=== PATIENT | female | born 1985 | race Two or more races ===

== ENCOUNTER 2016-10-20 14:39 | Inpatient (IN) | payer MEDICAID, OTHER ==
[~2016-10-20] VITALS: Ht 162.6 cm; Wt 129.7 kg
[2016-10-20 14:51] LABS: BASOPHILS # (AUTO) 0.1 /CMM (0.0-0.2); BASOPHILS % (AUTO) 1.7 % (0.0-2.0); DIFF TOTAL % 100 %; EOSINOPHILS # (AUTO) 0.1 /CMM (0.0-0.7); EOSINOPHILS % (AUTO) 1.8 % (0.0-6.0); HEMATOCRIT 47 % (33-45); HEMOGLOBIN 15.8 g/dL (11.5-14.8); LYMPHOCYTES # (AUTO) 1.9 /CMM (0.8-4.8); MEAN CORPUSCULAR HEMOGLOBIN 28 PG (26.0-33.0); MEAN CORPUSCULAR HGB CONC 34 g/dl (31.0-36.0); MEAN CORPUSCULAR VOLUME 84 fL (82-100); MONOCYTES # (AUTO) 0.2 /CMM (0.1-1.30); MONOCYTES % (AUTO) 2.2 % (2.0-12.0); NEUTROPHILS # (AUTO) 5.7 /CMM (1.8-8.9); NEUTROPHILS % (AUTO) 70.3 % (43.0-81.0); PLATELET COUNT (AUTO) 296 /CMM (150-450)
[2016-10-20] MEDS ORDERED: IV NS 0.9% 500 ML BAG IV ONE ×2 (15:00→16:30)
[2016-10-20] MEDS ORDERED: ONDANSETRON HCL/PF 4 MG/2 ML VIAL IVP ONE (15:00)
[2016-10-20] MEDS ORDERED: MORPHINE SULFATE INJ 2 MG/ML DISP.SYRIN IV ONE (15:00)
[2016-10-20 15:05] LABS: CALCIUM, SERUM 9.2 mg/dL (8.5-10.1); CREATININE 0.8 mg/dL (0.6-1.3)
[2016-10-20 15:12] LABS: INR 1.11 (0.87-1.13); PROTHROMBIN TIME 11.7 SECS (9.5-12.7)
[2016-10-20] MEDS ORDERED: IV NS 0.9% 500 ML IV ONE ×2 (15:27→16:11)
[2016-10-20] MEDS ORDERED: ONDANSETRON HCL/PF 4 MG/2 ML VIAL ONE (15:27)
[2016-10-20] MEDS ORDERED: MORPHINE SULFATE INJ 4 MG/ML DISP.SYRIN ONE (15:27)
[2016-10-20] MEDS ORDERED: IV NS 0.9% 250 ML IV ONE (15:59)
[2016-10-20] MEDS ORDERED: CT SWABBABLE VALVE TRANS SET 1 EA INFUS.SET MC ONE (15:59)
[2016-10-20] MEDS ORDERED: IOHEXOL-300 100 ML VIAL IV ONE (15:59)
[2016-10-20] MEDS ORDERED: IV NS 0.9% 1,000 ML ONE (16:11)
[2016-10-20] MEDS ORDERED: IV SET PRIMARY 1 EA INFUS.SET MC ONE (16:11)
[2016-10-20] MEDS ORDERED: IV NS 0.9% 1,000 ML BAG IV ONE (16:30)
[2016-10-20] MEDS ORDERED: CLON0.1T PO (17:51)
[2016-10-20] MEDS ORDERED: LISI-603 PO (17:51)
[2016-10-20] MEDS ORDERED: AMLO10TA2 PO (17:51)
[2016-10-20 20:00] VITALS: BP 159/96
[2016-10-20] MEDS ORDERED: Z GUARD REMEDY 2 OZ OINT TP PRN (20:30)
[2016-10-20] MEDS ORDERED: ONDANSETRON HCL/PF 4 MG/2 ML VIAL IVP PRN (20:30)
[2016-10-20] MEDS ORDERED: HYDROCODONE/APAP 10/325MG 1 EA TABLET PO PRN (20:30)
[2016-10-20] MEDS ORDERED: ACETAMINOPHEN 325 MG TABLET PO PRN (20:30)
[2016-10-20] MEDS ORDERED: MORPHINE SULFATE INJ 2 MG/ML DISP.SYRIN IV PRN (20:30)
[2016-10-20] MEDS ORDERED: ZOLPIDEM TARTRATE 5 MG TABLET PO PRN (20:30)
[2016-10-20] MEDS ORDERED: IV SET PRIMARY PUMP SET 1 EA INFUS.SET MC ONE (20:58)
[2016-10-20] MEDS: IV NS 0.9% 1,000 ML IV PRN (21:04)
[2016-10-20] MEDS: BLOOD SUGAR DIAGNOSTIC 1 EACH STRIP IN SCH (21:38)
[2016-10-20] MEDS ORDERED: DEXTROSE 50%-WATER 50 ML DISP.SYRIN IV PRN (22:00)
[2016-10-20 23:10] LABS: CANNABINOID, URINE NEGATIVE (NEGATIVE); PHENCYCLIDINE SCREEN,URINE NEGATIVE (NEGATIVE)
[2016-10-21] VITALS: BP 148/92
[2016-10-21] MEDS: INSULIN REGULAR, HUMAN 100 UNIT/ML 3 ML VIAL SQ PRN ×5 (00:14→22:00)
[2016-10-21] MEDS ORDERED: LIRA0.6P2 SUBCUT (00:19)
[2016-10-21 04:00] VITALS: BP 155/91
[2016-10-21 07:25] LABS: BASOPHILS % (AUTO) 0.2 % (0.0-2.0); DIFF TOTAL % 100 %; EOSINOPHILS # (AUTO) 0.2 /CMM (0.0-0.7); EOSINOPHILS % (AUTO) 3.2 % (0.0-6.0); HEMATOCRIT 38 % (33-45); HEMOGLOBIN 12.7 g/dL (11.5-14.8); LYMPHOCYTES # (AUTO) 2.1 /CMM (0.8-4.8); MEAN CORPUSCULAR HEMOGLOBIN 28 PG (26.0-33.0); MEAN CORPUSCULAR HGB CONC 34 g/dl (31.0-36.0); MEAN CORPUSCULAR VOLUME 82 fL (82-100); MONOCYTES # (AUTO) 0.5 /CMM (0.1-1.30); MONOCYTES % (AUTO) 6.5 % (2.0-12.0); NEUTROPHILS # (AUTO) 4.6 /CMM (1.8-8.9); NEUTROPHILS % (AUTO) 62.1 % (43.0-81.0); PLATELET COUNT (AUTO) 257 /CMM (150-450); RED BLOOD CELL COUNT(AUTO) 4.57 MIL/uL (4.0-5.2); WHITE BLOOD COUNT (AUTO) 7.4 K/uL (4.3-11.0)
[2016-10-21] MEDS: BLOOD SUGAR DIAGNOSTIC 1 EACH STRIP IN SCH ×4 (07:30→22:06)
[2016-10-21 08:00] VITALS: BP 160/90
[2016-10-21] MEDS: CLONIDINE HCL 0.1 MG TABLET PO SCH ×2 (08:15→16:34)
[2016-10-21] MEDS: AMLODIPINE BESYLATE 10 MG TABLET PO SCH (08:15)
[2016-10-21] MEDS: PANTOPRAZOLE 40 MG TABLET.DR PO SCH (08:15)
[2016-10-21] MEDS: LISINOPRIL (20MG) 20 MG TABLET PO SCH (08:15)
[2016-10-21] MEDS: ISOSORBIDE DINITRATE (20MG) 20 MG TABLET PO SCH ×2 (08:20→16:33)
[2016-10-21] MEDS: hydrALAZINE HCL 50 MG TABLET PO SCH ×3 (08:20→16:34)
[2016-10-21 11:14] LABS: BILIRUBIN,TOTAL 0.6 mg/dL (0.2-1.0); CALCIUM, SERUM 8.2 mg/dL (8.5-10.1); CREATININE 0.6 mg/dL (0.6-1.3); PHOSPHORUS 2.9 mg/dL (2.5-4.9); POTASSIUM 3.8 mmol/L (3.5-5.1); TOTAL PROTEIN, SERUM 6.9 g/dL (6.4-8.2)
[2016-10-21] MEDS: IV NS 0.9% 1,000 ML IV PRN ×2 (11:26→22:05)
[2016-10-21 12:13] LABS: THYROID STIMULATING HORMONE 0.636 uIU/mL (0.358-3.74)
[2016-10-21 16:00] VITALS: BP 156/75
[2016-10-21] MEDS ORDERED: SECONDARY IV SET 1 EA INFUS.SET MC ONE (18:24)
[2016-10-21] MEDS: Magnesium 1GM/D5W 100ML PREMIX 100 ML IV SCH ×2 (18:33→21:50)
[2016-10-21 20:00] VITALS: BP 118/86
[2016-10-22] MEDS: INSULIN REGULAR, HUMAN 100 UNIT/ML 3 ML VIAL SQ PRN ×2 (06:19→11:58)
[2016-10-22 07:12] LABS: BASOPHILS % (AUTO) 0.4 % (0.0-2.0); DIFF TOTAL % 100 %; EOSINOPHILS # (AUTO) 0.3 /CMM (0.0-0.7); EOSINOPHILS % (AUTO) 3.4 % (0.0-6.0); HEMATOCRIT 35 % (33-45); HEMOGLOBIN 11.5 g/dL (11.5-14.8); LYMPHOCYTES # (AUTO) 2.3 /CMM (0.8-4.8); MEAN CORPUSCULAR HEMOGLOBIN 28 PG (26.0-33.0); MEAN CORPUSCULAR HGB CONC 33 g/dl (31.0-36.0); MEAN CORPUSCULAR VOLUME 83 fL (82-100); MONOCYTES # (AUTO) 0.6 /CMM (0.1-1.30); MONOCYTES % (AUTO) 8.5 % (2.0-12.0); NEUTROPHILS # (AUTO) 4.2 /CMM (1.8-8.9); NEUTROPHILS % (AUTO) 56.7 % (43.0-81.0); PLATELET COUNT (AUTO) 241 /CMM (150-450); RED BLOOD CELL COUNT(AUTO) 4.15 MIL/uL (4.0-5.2); WHITE BLOOD COUNT (AUTO) 7.5 K/uL (4.3-11.0)
[2016-10-22 07:26] LABS: CALCIUM, SERUM 8.2 mg/dL (8.5-10.1); CREATININE 0.6 mg/dL (0.6-1.3); POTASSIUM 4.1 mmol/L (3.5-5.1)
[2016-10-22] MEDS: BLOOD SUGAR DIAGNOSTIC 1 EACH STRIP IN SCH ×2 (07:30→11:57)
[2016-10-22 08:00] VITALS: BP 123/68
[2016-10-22] MEDS: ISOSORBIDE DINITRATE (20MG) 20 MG TABLET PO SCH (08:30)
[2016-10-22] MEDS: PANTOPRAZOLE 40 MG TABLET.DR PO SCH (08:30)
[2016-10-22] MEDS: AMLODIPINE BESYLATE 10 MG TABLET PO SCH (08:30)
[2016-10-22] MEDS: CLONIDINE HCL 0.1 MG TABLET PO SCH (08:30)
[2016-10-22] MEDS: LISINOPRIL (20MG) 20 MG TABLET PO SCH (08:30)
[2016-10-22] MEDS: hydrALAZINE HCL 50 MG TABLET PO SCH ×2 (08:30→12:00)
[2016-10-22] MEDS ORDERED: HYDR-3658 PO (10:01)
[2016-10-22 12:00] VITALS: BP 118/62
== END 2016-10-22 14:15 | disposition home or self-care (01) | DRG 347 ==
LOC: ER 14:41 → TELE 18:42 → MED 10-21 09:19
PROVIDERS: ADMIT Nurse Practitioner Acute Care; ATTEND Nurse Practitioner Acute Care
DX: S32.039A Unspecified fracture of third lumbar vertebra, initial encounter for closed fracture (principal); K76.0 Fatty (change of) liver, not elsewhere classified; E11.65 Type 2 diabetes mellitus with hyperglycemia; R16.2 Hepatomegaly with splenomegaly, not elsewhere classified; E44.1 Mild protein-calorie malnutrition; Z68.42 Body mass index [BMI] 45.0-49.9, adult; S32.049A Unspecified fracture of fourth lumbar vertebra, initial encounter for closed fracture; S32.059A Unspecified fracture of fifth lumbar vertebra, initial encounter for closed fracture; I10 Essential (primary) hypertension; R07.89 Other chest pain; V89.2XXA Person injured in unspecified motor-vehicle accident, traffic, initial encounter; V43.52XA Car driver injured in collision with other type car in traffic accident, initial encounter; Y92.410 Unspecified street and highway as the place of occurrence of the external cause; E66.9 Obesity, unspecified; S29.9XXA Unspecified injury of thorax, initial encounter; R74.0 Nonspecific elevation of levels of transaminase and lactic acid dehydrogenase [LDH]; Z91.14 Patient's other noncompliance with medication regimen
CPT/HCPCS: 36415; 71260-TC; 72193-TC; 74160-TC; 80048-TC; 80053-TC; 80061-TC; 80305; 82962-TC; 83735-TC; 84100-TC; 84443-TC; 84484-TC; 84703-TC; 85025-TC; 85730-TC; 87081-TC; 93307-TC; 97001-TC; J1815; J2270; J2405; J3475; J7030; J7040; J7050; Q9967; Z7610